=== PATIENT | female | born 1990 | race Hispanic/Latino ===

== ENCOUNTER 2018-11-28 05:52 | Inpatient (IN) | payer OTHER ==
--- NOTE | 2018-11-27 23:07 | History and Physical Report ---
History of Present Illness Date of examination: 11/27/18 Chief complaint: IUP@40, suspected macrosomia, desires c/s History of present illness: Past History : 1 Past Medical History: Reviewed history from 10/13/2011 and no changes required: Negative Past Medical History Past Surgical History: Reviewed history from 06/16/2014 and no changes required: Ear surgery 13yo Past Medical History Abnormal PAP: negative Social Hx: Patient is single Manifactoring Smoking History: Patient currently smokes every day. Infection History Hx of STD: none HIV Risk Eval: low risk Hepatitis B Risk Eval: low risk Personal hx. of genital herpes: no Partner hx. of genital herpes: no Rash, Viral, or Febrile illness since last LMP? no Varicella/Chicken Pox Status: Previous Disease Genetic History Congenital Heart Defect: Mom: no Dad: no Milana Disease: Mom: no Dad: no Thalassemia Mom: no Dad: no Neural Tube Defect Mom: no Dad: no Down's Syndrome Mom: no Dad: no Torsten-Sachs Mom: no Dad: no Sickle Cell Disease/Trait Mom: no Dad: no Hemophilia Mom: no Dad: no Muscular Dystrophy Mom: no Dad: no Cystic Fibrosis Mom: no Dad: no Bent Chorea Mom: no Dad: no Mental Retardation Mom: no Dad: no Fragile X Mom: no Dad: no Other Genetic/Chromosomal Disorder Mom: no Dad: no Child w/other defect Mom: no Dad: no Enviromental Exposures Xray Exposure: no Medication, drug, or alcohol use since LMP: no Chemical/Other Exposure: no Exposure to Cat Liter: no Hx of Parvovirus (Fifth Disease): no Occupational Exposure to Children: none Current Allergies (reviewed today): No known allergies Physical Exam General appearance: well nourished, healthy appearing, no distress Chest/Lungs: respiratory effort normal, lungs clear to auscultation Cardiovascular: normal rate and rhythm Comments: declined pelvic exam Past History - Obstetrical History Expected Date of Delivery: 11/23/18 Actual Gestation: 40 Week(s) 4 Day(s) : 1 Medications and Allergies Active Meds: Active Medications Carboprost Tromethamine (Hemabate) 250 mcg IM ONCE PRN PRN Reason: bleeding Citric Acid/Sodium Citrate (Bicitra) 30 ml PO ONCE ONE Stop: 11/28/18 07:16 Famotidine (Pepcid) 20 mg IV ONCE ONE Stop: 11/28/18 07:16 Cefazolin Sodium (Ancef/Sterile Water 2 Gm/20 Ml) 2 gm in 20 mls @ 80 mls/hr IV PREOP NR; Protocol Lactated Ringer's (Lactated Ringers) 1,000 mls @ 2,250 mls/hr IV PREOP RENY Stop: 11/29/18 05:57 Oxytocin/Sodium Chloride (Pitocin/Ns 20 Unit/1000ml Drip) 20 units in 1,000 mls @ 0 mls/hr IV TITR RENY Methylergonovine Maleate (Methergine) 0.2 mg IM ONCE PRN PRN Reason: bleeding Metoclopramide HCl (Reglan) 10 mg IV ONCE ONE Stop: 11/28/18 07:16 Misoprostol (Cytotec) 1,000 mcg TN ONCE PRN PRN Reason: Bleeding Results All other labs normal. Assessment and Plan - Patient Problems (1) CPD (cephalo-pelvic disproportion) Status: Acute Qualifiers: Fetus number: single or unspecified fetus Plan to address problem: Patient with EFW 94%ile, short statue, 40lb weight gain and family history of shoulder dystocia (brother's child). Limitations of US in 3rd trimester and pelvic exam for adequacy discussed, specifically a: 1-2lb weight discrepancy. Options for delivery were again explained: TOLAC vs c/s. Shoulder dystocia with associated risks for infant brain damage, , permanent or transient injury/damage explained. She was also informed of possible need for episotomy that may involve her rectum/anus that could cause permanent fecal incontinence or the development of a hole between the vagina and rectum for which she may require multiple surgeries for repair. C/S discussed with risks for bleeding that may require a blood transfusion and risks for infection/reaction, other possible fatal infections, injury of the bowel, ureters or bladder with consequences. She was informed of possible need for c/s iwth each subsequent therefore increasing her risks for complications. Questions were encouraged and answered, she voiced her understanding and desires to proceed wth c/s. Consent was reviewed and sign. The patient was instructed/informed the following:The normal length of hospital stay for this procedure. Nothing to eat or drink after midnight the evening prior to surgery. (2) 40 weeks gestation of Status: Acute
[2018-11-28] MEDS: LACTATED RINGERS 1,000 ML IV SCH ×2 (06:12→06:52)
[2018-11-28 06:58] LABS: Hematocrit 36.4 % (30.3-42.9); Hemoglobin 11.5 gm/dl (10.1-14.3); Mean Corpuscular HGB Conc 32 % (30-34); Mean Corpuscular Volume 76 fl (79-97); Platelet Count 238 K/mm3 (140-440); Red Blood Count 4.77 M/mm3 (3.65-5.03); Red Cell Distribution Width 17.8 % (13.2-15.2)
[2018-11-28] MEDS ORDERED: PEPCID IV NR (07:30)
[2018-11-28] MEDS ORDERED: BICITRA PO NR (07:30)
[2018-11-28] MEDS ORDERED: REGLAN IV NR (07:30)
[2018-11-28] MEDS ORDERED: PITOCin/NS 20 UNIT/1000ML DRIP 20 UNITS/1,000 ML BAG IV SCH ×3 (07:30→13:05)
[2018-11-28] MEDS ORDERED: ANCEF/STERILE WATER 2 GM/20 ML 2 GM/20 ML SYRINGE IV NR (07:30)
[2018-11-28] MEDS ORDERED: HEMABATE IM PRN (08:00)
[2018-11-28] MEDS ORDERED: METHERGINE IM PRN (08:00)
[2018-11-28] MEDS ORDERED: CYTOTEC PR PRN (08:00)
[2018-11-28] MEDS ORDERED: WATER FOR IRRIG STERILE IR ONE (09:13)
[2018-11-28] MEDS ORDERED: NACL 0.9% IR ONE (09:13)
[2018-11-28] MEDS ORDERED: SODIUM CHLORIDE FLUSH SYRINGE 10 ML IV PRN (10:00)
--- NOTE | 2018-11-28 10:10 | Anesthesia Consultation ---
Anesthesia Consult and Med Hx Date of service: 11/28/18 - Airway Anesthetic Teeth Evaluation: Good ROM Head & Neck: Adequate Mental/Hyoid Distance: Adequate Mallampati Class: Class II Intubation Access Assessment: Good - Pulmonary Exam CTA: Yes - Cardiac Exam Cardiac Exam: RRR - Pre-Operative Health Status ASA Pre-Surgery Classification: ASA2 Proposed Anesthetic Plan: Spinal - Pulmonary Hx Smoking: Yes (quit upon ) Hx Asthma: No Hx Respiratory Symptoms: No SOB: No - Cardiovascular System Hx Hypertension: No Hx Coronary Artery Disease: No Hx Cardia Arrhythmia: No - Central Nervous System Hx Seizures: No Hx Back Pain: No Hx Psychiatric Problems: No - Endocrine Hx Renal Disease: No Hx End Stage Renal Disease: No Hx Liver Disease: No Hx Hypothyroidism: No Hx Hyperthyroidism: No - Hematic Hx Anemia: No Hx Sickle Cell Disease: No - Other Systems Hx Alcohol Use: No
[2018-11-28] MEDS ORDERED: TYLENOL PO PRN ×2 (10:15→13:05)
--- NOTE | 2018-11-28 10:24 | Operative Report ---
Operative Report Operative Report: Date: 11/28/2018 Preoperative diagnosis: 1. Intrauterine of 40 weeks 2. Suspected cephalopelvic disproportion patient desire primary elective delivery Postoperative diagnosis: 1. Intrauterine of 40 weeks 2. Suspected cephalopelvic disproportion patient desire primary elective delivery Procedure: Low uterine transverse incision for delivery Surgeon: Brooke Rae MD Submarine Element Coordinator: [] Anesthesia: CSE Anesthesiologist: Dr. Preston Estimated blood loss: 600 mL Urine out: 150 mL Findings: Live born female infant. Weight 9 lbs. 11 oz. Apgars 8 at 1 minute and 9 at 5 minutes. Uterus grossly normal, tubes grossly normal, ovaries grossly normal. Procedure: After risk, benefits, complications, consequences and alternatives for this procedure were discussed with patient and consents were reviewed and signed, she was taken to the OR where CSE anesthesia was placed. She was then placed in the left lateral tilt position, and prepped and draped in the usual sterile fashion. Timeout was performed, and an appropriate level of anesthesia was noted, a Pfannenstiel incision was made and extended to the fascia which was incised and extended in the lateral directions. The overlying fascia was sharply dissected away from the underlying rectus muscles in the superior and inferior directions. The midline was entered bluntly. The vesicouterine fold was incised and with blunt dissection the bladder flap was created. A transverse incision was made in the lower uterine segment and extended in superiolateral direction with finger fractionation. Clear fluid was noted. The was delivered from cephalic position. Mouth and nose were bulb suctioned. Spontaneous cry and excellent tone were noted. Cord was doubly clamped and cut. The infant was given to /resuscitation team present. The placenta was manually extracted. The uterus was then exteriorized and cleared of any further products of conception or placental tissue. The incision was reapproximated using 0 Vicryl in a running interlocking stitch. Grossly normal uterus, tubes and ovaries were noted. Once hemostasis was noted, the uterus was allowed back into the pelvic cavity. The pelvis was irrigated with warm normal saline. Again hemostasis was noted . Tisseel applied for further hemostasis. Interceed was then placed to prevent adhesions. Then attention was turned to the rectus muscles. The rectus muscles reapproximated using 0 Vicryl in a simple interrupted stitch x 3. Once hemostasis was noted, the fascia was reapproximated using 0 Vicryl running stitch fashion. Once hemostasis was note d skin incision was reapproximated using 4-0 Vicryl on a Jasiel needle in a subcuticular manner. Counts were correct 3. Patient tolerated procedure well state recovery room in stable condition.
[2018-11-28] MEDS ORDERED: TUCKS PAD TP PRN ×2 (10:30→13:05)
[2018-11-28] MEDS ORDERED: NEURONTIN PO NR (11:00)
[2018-11-28] MEDS ORDERED: LACTATED RINGERS 1,000 ML IV SCH (11:00)
[2018-11-28] MEDS ORDERED: TORADOL IV PRN ×2 (11:00→13:05)
[2018-11-28] MEDS ORDERED: NARCAN 0.4 MG/1 ML IV PRN ×2 (11:00→13:05)
[2018-11-28] MEDS ORDERED: LANSINOH TP PRN ×2 (11:00→13:05)
[2018-11-28] MEDS ORDERED: ZOFRAN IV PRN ×2 (11:00→13:05)
[2018-11-28] MEDS: DILAUDID IV PRN ×3 (11:10→11:40)
[2018-11-28] MEDS ORDERED: TYLENOL PO ONE (11:15)
[2018-11-28] MEDS ORDERED: DILAUDID IV PRN (11:20)
[2018-11-28] MEDS ORDERED: SODIUM CHLORIDE FLUSH SYRINGE 10 ML IV NR (13:05)
[2018-11-28] MEDS ORDERED: TYLENOL PR PRN (13:05)
[2018-11-28] MEDS ORDERED: MYLICON PO PRN (13:05)
[2018-11-28] MEDS ORDERED: MILK OF MAGNESIA PO PRN (13:05)
[2018-11-28] MEDS ORDERED: PHENERGAN PR PRN (13:05)
[2018-11-28] MEDS ORDERED: MORPHINE IV PRN ×2 (13:05)
[2018-11-28] MEDS: D5LR 1,000 ML IV SCH ×2 (14:17→21:09)
[2018-11-28] MEDS: PERCOCET 5/325 PO PRN ×2 (14:17→21:04)
[2018-11-28 14:49] LABS: Hepatitis C Virus Antibody Non-Reactive (NonReactive)
[2018-11-28] MEDS: ANCEF/NS 1 GM/50 ML 1 GM/50 ML BAG IV SCH (16:57)
[2018-11-28 21:03] LABS: Hematocrit 28.3 % (30.3-42.9); Hemoglobin 9.1 gm/dl (10.1-14.3)
[2018-11-29] MEDS: ANCEF/NS 1 GM/50 ML 1 GM/50 ML BAG IV SCH (02:12)
[2018-11-29] MEDS: PERCOCET 5/325 PO PRN ×3 (03:00→15:02)
[2018-11-29] MEDS ORDERED: BOOSTRIX IM ONE ×2 (06:00→12:52)
--- NOTE | 2018-11-29 13:00 | Progress Note ---
Assessment and Plan - Patient Problems (1) delivery delivered Onset Date: ~11/28/18 Current Visit: Yes Status: Acute Plan to address problem: Pt A&O X 3 VSS H&H 07/27 drop r/t blood loss from surgery Incision D&I Doing well s/p section P: continue pathway Advance diet and activity as tolerated Subjective - Subjective Date of service: 11/29/18 (no c/o voiced) Principal diagnosis: Day # 1 s/p section Patient reports: appetite normal, voiding normally, pain well controlled, ambulating normally [place]: doing well Objective - Vital Signs Latest vital signs: Vital Signs Temp Pulse Resp BP BP Pulse Ox 11/29/18 08:00 98.1 F 84 18 96/64 95 11/29/18 04:10 98.2 F 99 H 18 116/62 11/29/18 00:00 98.4 F 87 18 110/77 11/28/18 20:00 98.4 F 79 18 117/77 11/28/18 17:00 76 106/73 97 11/28/18 16:40 98.2 F 77 18 106/73 97 Intake and Output 11/28/18 11/29/18 11/29/18 22:59 06:59 14:59 Intake Total 2468.333 360 480 Output Total 2300 500 Balance 168.333 -140 480 Intake: IV 908.333 ANCEF/NS 1 GM/50 ML 1 gm 50 In 50 ml @ 100 mls/hr IV Q8H RENY Rx#:[id number] D5lr 1,000 ml @ 125 mls/ 858.333 hr IV DIRECT RENY Rx#: [id number] Oral 1080 360 120 Intake, Free Water 480 360 Output: Urine 2300 500 Indwelling Catheter 2300 Void 500 Other: Total, Intake Amount 240 120 120 Total, Output Amount 1200 300 # Voids Void 2 - Exam Breasts: Present: normal Cardiovascular: Present: Regular rate Lungs: Present: Normal air movement Abdomen: Present: normal appearance, soft, normal bowel sounds Uterus: Present: normal Extremities: Present: normal Incision: Present: normal, dry, intact - Labs Labs: Abnormal lab results 11/28/18 Range/Units 20:49 Hgb 9.1 L (10.1-14.3) gm/dl Hct 28.3 L D (30.3-42.9) %
[2018-11-29] MEDS: IBUPROFEN PO PRN ×2 (15:02→21:16)
[2018-11-30] MEDS: PERCOCET 5/325 PO PRN ×2 (01:17→11:45)
--- NOTE | 2018-11-30 08:23 | Discharge Summary ---
Providers - Providers Date of Admission: 11/28/18 05:52 Date of discharge: 11/30/18 (desires d/c home) Attending physician: CHAGO PORTILLO 11/28/18 13:05 Consult to Yarn Polishing Machine Operator [CONS] Routine Reason For Exam: Primary care physician: CHAGO PORTILLO Hospitalization Reason for admission: planned primary c/s for macrosomia Condition: Good Pertinent studies: postop H&H 9.1/28.3 - anemia from blood loss, acute. Asymptomatic. Procedures: primary c/s Hospital course: uncomplicated primary c/s and course. Disposition: - TO HOME OR SELFCARE - Discharge Diagnoses (1) Anemia associated with acute blood loss Status: Acute (2) delivery delivered Status: Acute Core Measure Documentation - Palliative Care Palliative Care/ Comfort Measures: Not Applicable - Core Measures Any of the following diagnoses?: none Exam - Constitutional Vitals: Temp Pulse Resp BP Pulse Ox 98.4 F 91 H 18 107/61 98 11/30/18 00:00 11/30/18 00:00 11/30/18 01:17 11/30/18 00:00 11/29/18 16:27 General appearance: Present: no acute distress, well-nourished - EENT Eyes: Present: PERRL ENT: hearing intact, clear oral mucosa - Neck Neck: Present: supple, normal ROM - Respiratory Respiratory effort: normal Respiratory: bilateral: CTA - Cardiovascular Heart Sounds: Present: S1 & S2. Absent: rub, click - Extremities Extremities: pulses symmetrical, No edema Peripheral Pulses: within normal limits - Abdominal General gastrointestinal: Present: soft, non-tender, non-distended, normal bowel sounds Female genitourinary: Present: normal - Integumentary Integumentary: Present: clear, warm, dry - Musculoskeletal Musculoskeletal: gait normal, strength equal bilaterally - Psychiatric Psychiatric: appropriate mood/affect, intact judgment & insight - Neurologic Neurologic: CNII-XII intact, moves all extremities - Additional findings Additional findings: incision D&I, lochia scant, fundus firm, bottle feeding. Plan Activity: advance as tolerated Diet: regular Wound: open to air, keep clean and dry Follow up with: CHAGO PORTILLO MD [Primary Care Provider] - 7 Days (Congratulations!! Please keep your schedule appointment next week for your incision check. Call [phone] for any quesitons of complaints. ) Prescriptions: Docusate Sodium [Colace] 100 mg PO BID PRN #30 capsule PRN Reason: Constipation Ferrous Sulfate [Feosol 325 MG tab] 325 mg PO BID #90 tablet Ibuprofen [Motrin 800 MG tab] 800 mg PO TID PRN #30 tablet PRN Reason: Pain oxyCODONE /ACETAMINOPHEN [Percocet 5/325 mg] 1 - 2 tab PO Q6HR PRN #20 tablet PRN Reason: Pain
[2018-11-30] MEDS: IBUPROFEN PO PRN (11:45)
[2018-12-02 11:45] VITALS: BP 112/78
== END 2018-11-30 13:00 | disposition home or self-care (01) | DRG 787 ==
LOC: APU 05:52 → OB 12:18
PROVIDERS: ADMIT Obstetrics & Gynecology; ATTEND Obstetrics & Gynecology
PROC: 10D00Z1 Extraction of Products of Conception, Low, Open Approach (ICD-10-PCS; principal; 2018-11-28)
DX: O33.9 Maternal care for disproportion, unspecified (principal); D62 Acute posthemorrhagic anemia; Z3A.40 40 weeks gestation of pregnancy; Z37.0 Single live birth; O99.334 Smoking (tobacco) complicating childbirth; F17.200 Nicotine dependence, unspecified, uncomplicated; O99.02 Anemia complicating childbirth
CPT/HCPCS: 36415; 85014; 85018; 85027; 86592; 86706; 86762; 86803; 86850; 86900; 86901; 90471; 90715; G0378; C1765; C9250; J0690; J1170; J1885; J2590; J2765; J7120; J7121

== ENCOUNTER 2020-06-09 16:15 | Outpatient (CLI) | payer OTHER ==
[2020-06-09 17:25] VITALS: BP 102/58
--- NOTE | 2020-06-09 18:13 | Ultrasound Report ---
ULTRASOUND OBSTETRIC LIMITED INDICATION / CLINICAL INFORMATION: FRANCISCO. Premature rupture of membranes TECHNIQUE: Transabdominal ultrasound imaging. COMPARISON: None available. FINDINGS: HEART RATE (beats per minute): 135 AMNIOTIC FLUID INDEX (cm) = 14.3 PRESENTATION: Cephalic. ADDITIONAL FINDINGS: None. IMPRESSION: No significant abnormality. Signer Name: Leandro Burnett Jr, MD Signed: 06/09/2020 6:08 PM Workstation Name: [id number]
== END 2020-06-09 17:35 | disposition home or self-care (01) ==
LOC: TRG 16:15 → APU 16:16 → TRG 17:35
PROVIDERS: ATTEND Obstetrics & Gynecology
DX: O42.913 Preterm premature rupture of membranes, unspecified as to length of time between rupture and onset of labor, third trimester (principal); Z3A.29 29 weeks gestation of pregnancy
CPT/HCPCS: 59025; 76815

== ENCOUNTER 2020-06-19 08:30 | Outpatient (CLI) | payer OTHER ==
[2020-06-19] MEDS ORDERED: LACTATED RINGERS 500 ML IV ONE (09:20)
[2020-06-19 10:29] VITALS: BP 110/58
[2020-06-19 11:19] LABS: Bacteria,Urine 3+ /HPF (Negative); Bilirubin,Urine NEG (Negative); Blood,Urine NEG (Negative); Color,Urine Yellow (Yellow); Mucus,Urine FEW /HPF; Protein,Urine <15 mg/dL mg/dL (Negative); RBC,Urine < 1.0 /HPF (0.0-6.0); Urobilinogen,Urine < 2.0 mg/dL (<2.0)
[2020-06-19] MEDS ORDERED: TERBUTALINE 1 MG/1 ML INJ SUB-Q SCH (12:00)
[2020-06-19] MEDS ORDERED: LACTATED RINGERS 1,000 ML ONE (12:07)
== END 2020-06-19 13:35 | disposition home or self-care (01) ==
LOC: TRG 08:30 → APU 08:32 → TRG 13:35
PROVIDERS: ATTEND Obstetrics & Gynecology
DX: O26.893 Other specified pregnancy related conditions, third trimester (principal); R10.30 Lower abdominal pain, unspecified; M54.5 Low back pain; R25.2 Cramp and spasm; R11.0 Nausea; O47.03 False labor before 37 completed weeks of gestation, third trimester; Z87.891 Personal history of nicotine dependence; Z3A.30 30 weeks gestation of pregnancy
CPT/HCPCS: 59025; 81001; 96372; J3105; J7120; 96360; 96361

== ENCOUNTER 2020-08-14 19:17 | Outpatient (CLI) | payer OTHER ==
[2020-08-14 19:45] VITALS: BP 116/71
[2020-08-14] MEDS ORDERED: TERBUTALINE 1 MG/1 ML INJ SUB-Q ONE (20:07)
== END 2020-08-14 20:50 | disposition home or self-care (01) ==
LOC: TRG 19:17 → APU 19:19 → TRG 20:50
PROVIDERS: ATTEND Obstetrics & Gynecology
DX: O47.1 False labor at or after 37 completed weeks of gestation (principal); Z3A.37 37 weeks gestation of pregnancy
CPT/HCPCS: 59025; 96372; J3105

== ENCOUNTER 2020-08-25 05:27 | Inpatient (IN) | payer OTHER ==
[2020-08-25] MEDS ORDERED: LACTATED RINGERS 2,000 ML IV ONE (06:00)
[2020-08-25] MEDS ORDERED: OXYTOCIN DRIP 30,000 MILLIUNITS/500 ML BAG IV ONE (07:58)
[2020-08-25] MEDS ORDERED: BICITRA ORAL LIQD 30ML ONE (07:58)
[2020-08-25] MEDS ORDERED: FAMOTIDINE 20 MG/2 ML INJ IV ONE ×2 (07:58→08:00)
[2020-08-25] MEDS ORDERED: METOCLOPRAMIDE 10 MG/2 ML INJ ONE (07:58)
[2020-08-25] MEDS ORDERED: ceFAZolin/Water 2 GM/20 ML 2 GM/20 ML SYRINGE IV ONE ×2 (07:59→08:00)
[2020-08-25] MEDS ORDERED: METOCLOPRAMIDE 10 MG/2 ML INJ IV ONE (08:00)
[2020-08-25] MEDS ORDERED: BICITRA ORAL LIQD 30ML PO ONE (08:00)
[2020-08-25] MEDS ORDERED: PHENYLEPHRINE/NS 1,000 MCG/10 ML SYRINGE (OR USE) IV ONE ×2 (08:30→08:51)
[2020-08-25] MEDS ORDERED: ePHEDrine SULFATE 50 MG/1 ML INJ ONE ×2 (08:30→08:37)
[2020-08-25] MEDS ORDERED: OXYTOCIN/NS 30 UNIT/500 ML DRIP IV ONE ×2 (08:30→13:50)
[2020-08-25] MEDS ORDERED: LACTATED RINGERS 1000 ML IV SOLN ONE (08:30)
[2020-08-25] MEDS ORDERED: ceFAZolin/STERILE WATER 2 GM/20 ML SYRINGE IV ONE ×2 (08:30→13:50)
[2020-08-25] MEDS ORDERED: BUPIVACAINE/PF (0.5%) 5 MG/1 ML 30 ML VIAL INFILTRATI ONE ×2 (08:30→08:37)
[2020-08-25] MEDS ORDERED: dexAMETHasone 20 MG/5 ML VIAL ONE ×2 (08:30→08:37)
[2020-08-25] MEDS ORDERED: KETOROLAC 30 MG/1 ML INJ ONE ×4 (08:30→14:00)
[2020-08-25] MEDS ORDERED: LACTATED RINGERS 1,000 ML ONE (08:51)
[2020-08-25] MEDS ORDERED: ONDANSETRON 4 MG/2 ML INJ ONE (09:00)
[2020-08-25] MEDS ORDERED: CEFAZOLIN IV ONE ×2 (13:50→14:00)
[2020-08-25] MEDS ORDERED: WATER FOR IRRIG STERILE 1,500 ML BOTTLE IR ONE (13:50)
[2020-08-25] MEDS ORDERED: NS IV ONE ×2 (13:50→14:00)
[2020-08-25] MEDS ORDERED: SODIUM CHLORIDE 0.9% IRR 1,500 ML BOTTLE IR ONE (13:50)
[2020-08-25] MEDS ORDERED: D5RL 1000 ML IV SOLN IV ONE ×2 (13:50→14:00)
--- NOTE | 2020-08-25 17:53 | Anesthesia Day of Surgery ---
Anesthesia Day of Surgery - Day of Surgery Patient Examined: Yes Patient H&P Reviewed: Yes Patient is NPO: Yes Beta Blockers: No Cardiac Clearance: No Pulmonary Clearance: No Tej's Test: N/A
--- NOTE | 2020-08-25 17:54 | Anesthesia Consultation ---
Anesthesia Consult and Med Hx Date of service: 08/25/20 - Airway Anesthetic Teeth Evaluation: Good ROM Head & Neck: Adequate Mental/Hyoid Distance: Adequate Mallampati Class: Class II Intubation Access Assessment: Probably Good - Pulmonary Exam CTA: Yes - Cardiac Exam Cardiac Exam: RRR - Pre-Operative Health Status ASA Pre-Surgery Classification: ASA2 Proposed Anesthetic Plan: Spinal Nerve Block: TAP - Pulmonary Hx Smoking: Yes (quit upon ) Hx Asthma: No Hx Respiratory Symptoms: No SOB: No Hx Sleep Apnea: No - Cardiovascular System Hx Hypertension: No Hx Coronary Artery Disease: No Hx Cardia Arrhythmia: No - Central Nervous System Hx Seizures: No Hx Back Pain: No Hx Psychiatric Problems: No - Gastrointestinal Hx Gastroesophageal Reflux Disease: No - Endocrine Hx Renal Disease: No Hx End Stage Renal Disease: No Hx Liver Disease: No Hx Hypothyroidism: No Hx Hyperthyroidism: No - Hematic Hx Anemia: No Hx Sickle Cell Disease: No - Other Systems Hx Alcohol Use: No
--- NOTE | 2020-08-25 17:55 | Progress Note ---
Regional Anesthesia Block - Regional Anesthesia Block Start Time: 10:05 Stop Time: 10:15 Performed By:: JACOBO CLARK ([facility]) Procedure: Patient consented for TAP block for post surgical pain management. Patient identified, monitors placed, and time out performed. Mid axillary TAP identified bilaterally via ultrasound. Skin prepped bilaterally with [chlorhexidine] and [20g stimuplex] needle advanced to the TAP. 30ml [Marcaine 0.25% with 25mcg Precedex and Decadron 4mg] injected under ultrasound guidance on the [left] side. 30ml [Marcaine 0.25% with 25mcg Precedex and Decadron 4mg] injected under ultrasound guidance on the [right] side.
[2020-08-25] MEDS ORDERED: MORPHINE 2 MG/1 ML INJ ONE (18:06)
[2020-08-25] MEDS ORDERED: ACETAMINOPHEN 325 MG TAB PO PRN (18:35)
[2020-08-25] MEDS ORDERED: PROMETHAZINE 25 MG RECT SUPP PR PRN (19:00)
[2020-08-25] MEDS ORDERED: MORPHINE 4 MG/1 ML INJ IV PRN (19:00)
[2020-08-25] MEDS ORDERED: PROMETHAZINE 25 MG TAB PO PRN (19:00)
[2020-08-25] MEDS ORDERED: WITCH HAZEL/ GLYCERIN PAD TP PRN (19:00)
[2020-08-25] MEDS ORDERED: diphenhydrAMINE 50 MG/ML VIAL IV PRN (19:00)
[2020-08-25] MEDS ORDERED: OXYTOCIN DRIP 30 UNITS/500 ML BAG IV SCH (19:00)
[2020-08-25] MEDS ORDERED: D5W/LACTATED RINGERS 1,000 ML IV SCH (19:00)
[2020-08-25] MEDS ORDERED: NALOXONE 0.4 MG/1 ML INJ IV PRN (19:00)
[2020-08-25] MEDS ORDERED: SIMETHICONE 80 MG CHEW TAB PO PRN (19:00)
[2020-08-25] MEDS ORDERED: diphenhydrAMINE 50 MG CAP PO PRN (19:00)
[2020-08-25] MEDS ORDERED: LANOLIN/ZINC/DIMETHICONE (LANSINOH) 7 GM TP PRN (19:00)
[2020-08-25] MEDS ORDERED: ceFAZolin/NS 1 GM/50 ML 1 GM/50 ML BAG IV SCH (19:00)
[2020-08-25] MEDS ORDERED: MORPHINE 2 MG/1 ML INJ IV PRN (19:00)
[2020-08-25] MEDS ORDERED: ONDANSETRON 4 MG/2 ML INJ IV PRN (19:00)
[2020-08-25] MEDS ORDERED: HYDROmorphone 1 MG/1 ML INJ IV PRN (19:00)
[2020-08-25] MEDS ORDERED: NalbUPHINE 10 MG/1 ML INJ IV PRN (19:00)
[2020-08-25] MEDS ORDERED: HYDROCORTISONE 2.5% RECT CREAM 28.35 GM PR PRN (19:30)
[2020-08-25] MEDS ORDERED: IBUPROFEN 600 MG TAB PO SCH (20:00)
[2020-08-25] MEDS: oxyCODONE /ACETAMINOPHEN 5-325MG TAB PO PRN (20:55)
[2020-08-25 21:05] LABS: Hemoglobin 9.1 gm/dl (10.1-14.3)
[2020-08-25] MEDS ORDERED: MAGNESIUM HYDROXIDE (MOM) ORAL LIQD UDC PO PRN (22:00)
[2020-08-26] MEDS: KETOROLAC 30 MG/1 ML INJ IV SCH ×2 (00:20→05:23)
--- NOTE | 2020-08-26 04:48 | Progress Note ---
Assessment and Plan day 1 postop , doing well. No complaints. H&H 9.1/29.0, VSSAF. Lochia scant, fundus firm - Patient Problems (1) delivery delivered Onset Date: ~11/28/18 Current Visit: No Status: Acute Plan to address problem: advance diet and activity as tolerated Continue postop pathway Subjective - Subjective Date of service: 08/26/20 Principal diagnosis: postop day #1 s/p repeat c/s Patient reports: appetite normal, voiding normally, pain well controlled, ambulating normally, no dizzy ambulation, no nauseated : doing well Objective - Vital Signs Latest vital signs: Vital Signs Temp Pulse Resp BP BP 08/26/20 00:00 98.6 F 79 16 103/74 08/25/20 20:00 98.6 F 74 16 102/78 08/25/20 15:45 98 F 65 18 85/60 08/25/20 12:20 97.7 F 80 20 96/45 Intake and Output 08/25/20 08/25/20 08/26/20 15:59 23:59 07:59 Intake Total 360 240 800 Output Total 300 300 600 Balance 60 -60 200 Intake: Oral 360 240 200 Intake, Free Water 600 Output: Urine 300 300 600 Indwelling Catheter 300 300 Void 600 Other: Total, Intake Amount 360 240 200 Total, Output Amount 300 300 600 # Voids Void 1 Weight 93.44 kg - Exam Breasts: Present: normal Cardiovascular: Present: Regular rate Lungs: Present: Clear to auscultation, Normal air movement Abdomen: Present: normal appearance, soft Vulva: both: normal Uterus: Present: normal, firm, fundal height at umbilicus Extremities: Present: normal Deep Tendon Reflex Grade: Normal +2 Incision: Present: normal, dry, dressed - Labs Labs: Abnormal lab results 08/25/20 Range/Units Unknown Hgb 9.1 L (10.1-14.3) gm/dl Hct 29.0 L (30.3-42.9) %
--- NOTE | 2020-08-26 09:01 | Post Anesthesia Evaluation ---
- Post Anesthesia Evaluation Patient Participated: Yes Airway Patent: Yes Stable Respiratory Function: Yes Nausea/Vomiting: No Temp > 96.8F: Yes Pain Manageable: Yes Adequeate Hydration: Yes Anesthesia Complications: No Block Receding Appropriately: Yes Patient on Ventilator: No
[2020-08-26] MEDS ORDERED: MEASLES, MUMPS & RUBELLA 12,500 UNIT/0.5 ML VACCINE SUB-Q ONE (11:00)
[2020-08-26] MEDS: oxyCODONE /ACETAMINOPHEN 5-325MG TAB PO PRN ×3 (11:24→22:34)
[2020-08-26] MEDS ORDERED: ACETAMINOPHEN 325 MG TAB PO PRN (12:30)
[2020-08-26] MEDS ORDERED: IBUPROFEN 600 MG TAB PO SCH (13:00)
[2020-08-26] MEDS: IBUPROFEN 800 MG TAB PO SCH (15:40)
--- NOTE | 2020-08-26 18:17 | Event Note ---
Date: 08/26/20 (Pt pain well controlled. ) Received a call from RN around 2 pm stating that pt was having problems with pain and only had Motrin ordered. Reviewed orders at that time and pain medication had been ordered. Changed Motrin from 600mg to 800mg. Pt also has Percocet ordered. Pt has given Percoect and now states pain relief is much better. She is continuing to do well . Ambulating, voiding, and passing flatus. Anticipate discharge home on 08/27.
[2020-08-27] MEDS: IBUPROFEN 800 MG TAB PO SCH ×2 (01:22→11:30)
--- NOTE | 2020-08-27 06:09 | Discharge Summary ---
Providers - Providers Date of Admission: 08/25/20 05:27 Date of discharge: 08/27/20 (desires d/c) Attending physician: BETO SPENCER Primary care physician: BETO SPENCER Hospitalization Reason for admission: section Delivery: Procedure: repeat low transverse Episiotomy: none Laceration: none Incision: normal, dry, intact Other procedures: none complications: none Discharge diagnosis: IUP at term delivered baby: male (pt will call to [facility] circ) Hospital course: uncomplicated section Pt resting No voiced c/o VSS FF below umb Lochia scant Dressing D&I to be removed by RN H&H 07/28 drop r/t blood loss from surgery Doing well s/p repeat section P: d/c today with instructions RTO 1 week for postop and circ Condition at discharge: Good Disposition: DC-01 TO HOME OR SELFCARE - Discharge Diagnoses (1) delivery delivered Status: Acute Comment: RTO 1 week postop care Plan - Provider Discharge Summary Activity: routine, no sex for 6 weeks, no heavy lifting 4 weeks, no strenuous exercise Diet: routine Instructions: routine Additional instructions: [] Smoking cessation referral if applicable(refer to patient education folder for contact #) [] Refer to [facility] Booklet Call your doctor immediately for: * Fever > 100.5 * Heavy vaginal bleeding ( >1 pad per hour) * Severe persistent headache * Shortness of breath * Reddened, hot, painful area to leg or breast * Drainage or odor from incision. * Keep incision clean and dry at all times and follow doctor's instructions regarding bathing/showering - Follow up plan Follow up: BETO SPENCER MD [Primary Care Provider] - 7 Days (Congratulations! Please call [phone] to schedule your son's circumcision. Bring the GORDON zee with you to his visit. Do NOT use at home. Take medications as prescribed. Call with concerns.)
[2020-08-27] MEDS: oxyCODONE /ACETAMINOPHEN 5-325MG TAB PO PRN ×3 (06:25→15:59)
[2020-08-27] MEDS ORDERED: FLEET ENEMA PR PRN (10:00)
[2020-08-27 16:24] VITALS: BP 108/63
== END 2020-08-27 16:10 | disposition home or self-care (01) | DRG 788 ==
LOC: OB 05:27
PROVIDERS: ADMIT Obstetrics & Gynecology; ATTEND Obstetrics & Gynecology
PROC: 10D00Z1 Extraction of Products of Conception, Low, Open Approach (ICD-10-PCS; principal; 2020-08-25)
PROC: 3E0234Z Introduction of Serum, Toxoid and Vaccine into Muscle, Percutaneous Approach (ICD-10-PCS; 2020-08-26)
DX: O34.211 Maternal care for low transverse scar from previous cesarean delivery (principal); Z37.0 Single live birth; Z3A.39 39 weeks gestation of pregnancy; Z20.828 Contact with and (suspected) exposure to other viral communicable diseases; Z23 Encounter for immunization
CPT/HCPCS: 36415; 85014; 85018; 86592; 86850; 86900; 86901; 90471; 90707; G0378; J0690; J1100; J1885; J2270; J2370; J2405; J2590; J3490; J7120; J7121; U0003